=== PATIENT | male | born 1985 | race Hispanic/Latino ===

== ENCOUNTER 2017-04-01 21:32 | Inpatient (IN) | payer OTHER ==
[~2017-04-01] VITALS: Ht 172.7 cm; Wt 99.8 kg
[2017-04-01] MEDS ORDERED: SODIUM CHLORIDE 0.9% 1000ML 1,000 ML IV ONE (22:04)
[2017-04-01] MEDS ORDERED: ONDANSETRON ODT 4 MG TAB ONE (22:04)
[2017-04-01] MEDS ORDERED: ACETAMINOPHEN-CODEINE ELIXIR 5 ML UDCUP ONE (22:05)
[2017-04-01 22:07] LABS: BASOPHILS % (AUTO) 0.9 % (0.0-5.0); HEMATOCRIT 43.4 % (42-54); MEAN CORPUSCULAR HEMOGLOBIN 31.1 pg (27.0-33.0); MEAN CORPUSCULAR HGB CONC 35.8 g/dL (32.0-36.0); MEAN CORPUSCULAR VOLUME 86.9 fL (79-99); MONOCYTES % (AUTO) 7.9 % (3.0-13.0); NEUTROPHILS % (AUTO) 57.2 % (40.0-77.0); PLATELET COUNT (AUTO) 300 K/uL (130-400); RED BLOOD CELL COUNT(AUTO) 4.99 MIL/uL (4.50-6.20); RED CELL DISTRIBUTION WIDTH 12.3 % (11.0-15.5); WHITE BLOOD COUNT (AUTO) 8.7 K/uL (4.8-10.8)
[2017-04-01 22:12] LABS: CREATININE 1.2 mg/dL (0.5-1.5); POTASSIUM 3.6 mmol/L (3.5-5.1)
[2017-04-01 22:14] LABS: INR 0.94 (0.85-1.15); PARTIAL THROMBOPLASTIN TIME 24.6 SEC (26.3-35.5); PROTHROMBIN TIME 9.9 SEC (9.6-11.6)
[2017-04-01 22:25] LABS: ALBUMIN 4.1 g/dL (3.5-5.0); BILIRUBIN,TOTAL 0.3 mg/dL (0.2-1.0); TOTAL PROTEIN, SERUM 7.6 g/dL (6.0-8.3)
[2017-04-01] MEDS ORDERED: IOPAMIDOL-370 75 ML VIAL IV ONE (22:32)
[2017-04-01 23:18] LABS: APPEARANCE,URINE Clear (CLEAR); BILIRUBIN,URINE Negative (NEGATIVE); COLOR,URINE Yellow (YELLOW); GLUCOSE, URINE (UA) Negative (NEGATIVE); KETONES,URINE 15 mg/dL (NEGATIVE); LEUKOCYTE ESTERASE ,URINE Negative (NEGATIVE); NITRATE,URINE Negative (NEGATIVE); OCCULT BLOOD,URINE Negative (NEGATIVE); PH,URINE 6.5 (5.0-8.0); PROTEIN,URINE Negative (NEGATIVE)
[2017-04-01 23:24] LABS: AMPHET/METH SCREEN,URINE NEGATIVE (NEGATIVE); BARBITURATE SCREEN, URINE NEGATIVE (NEGATIVE); BENZODIAZEPINES SCREEN,URINE NEGATIVE (NEGATIVE); CANNABINOID SCREEN,URINE NEGATIVE (NEGATIVE); COCAINE SCREEN,URINE POSITIVE (NEGATIVE); OPIATE SCREEN,URINE POSITIVE (NEGATIVE); PHENCYCLIDINE SCREEN,URINE NEGATIVE (NEGATIVE)
[2017-04-01 23:29] LABS: RBC,URINE 0-1 /HPF (0-1)
[2017-04-01 23:30] LABS: BACTERIA,URINE Rare /HPF (None Seen); WBC,URINE 0-1 /HPF (0-1)
[2017-04-02] MEDS: SODIUM CHLORIDE 0.9% 1000ML 1,000 ML IV SCH ×3 (00:35→20:16)
[2017-04-02] MEDS ORDERED: ONDANSETRON HCL 4 MG/2 ML VIAL IV PRN (00:45)
[2017-04-02] MEDS ORDERED: POTASSIUM CHLORIDE 10% ELIXIR 20 MEQ/15 ML UDCUP PO PRN (00:45)
[2017-04-02] MEDS ORDERED: POTASSIUM CHLORIDE 20MEQ/100ML 100 ML IV PRN (00:45)
[2017-04-02] MEDS ORDERED: HYDROMORPHONE 1 MG/1 ML AMP IV PRN (00:45)
[2017-04-02] MEDS ORDERED: POTASSIUM CHLORIDE 20 MEQ ERTAB PO PRN (00:45)
[2017-04-02] MEDS ORDERED: LIDOCAINE HCL-MPF 1% 2ML VIAL IVP PRN (00:45)
[2017-04-02] MEDS: LEVOFLOXACIN 500 MG/D5W 100 ML 100 ML IV SCH (01:00)
[2017-04-02] MEDS ORDERED: LEVOFLOXACIN 500 MG/D5W 100 ML 100 ML ONE (01:07)
[2017-04-02] MEDS ORDERED: HYDROMORPHONE HCL 2 MG/ML VIAL ONE (01:08)
[2017-04-02] MEDS ORDERED: ACETAMINOPHEN 650 MG SUPPOSITORY RC PRN (01:15)
[2017-04-02 02:20] VITALS: BP 137/83
[2017-04-02 04:00] VITALS: BP 131/76
[2017-04-02 06:27] LABS: HEMATOCRIT 40.5 % (42-54); MEAN CORPUSCULAR HEMOGLOBIN 30.3 pg (27.0-33.0); MEAN CORPUSCULAR HGB CONC 34.8 g/dL (32.0-36.0); MEAN CORPUSCULAR VOLUME 87.3 fL (79-99); NUCLEATED RED BLOOD CELLS 0.1 % (0.0-0.19); PLATELET COUNT (AUTO) 263 K/uL (130-400); RED BLOOD CELL COUNT(AUTO) 4.64 MIL/uL (4.50-6.20); RED CELL DISTRIBUTION WIDTH 12.5 % (11.0-15.5); WHITE BLOOD COUNT (AUTO) 10.9 K/uL (4.8-10.8)
[2017-04-02 06:53] LABS: ALBUMIN 3.4 g/dL (3.5-5.0); BILIRUBIN,TOTAL 0.3 mg/dL (0.2-1.0); MAGNESIUM 1.9 mg/dL (1.80-2.40); POTASSIUM 3.9 mmol/L (3.5-5.1); TOTAL PROTEIN, SERUM 6.9 g/dL (6.0-8.3)
[2017-04-02 08:20] VITALS: BP 131/79
[2017-04-02] MEDS: PANTOPRAZOLE SODIUM 40 MG TABLET.DR PO SCH (08:52)
[2017-04-02] MEDS ORDERED: MORPHINE SULFATE 2 MG/ML 1ML SYG IVP PRN (10:45)
[2017-04-02 11:20] VITALS: BP 139/63
[2017-04-02 16:09] VITALS: BP 127/84
[2017-04-02 20:43] VITALS: BP 128/77
[2017-04-03 00:26] VITALS: BP 130/90
[2017-04-03] MEDS: LEVOFLOXACIN 500 MG/D5W 100 ML 100 ML IV SCH (01:07)
[2017-04-03 05:00] VITALS: BP 144/96
[2017-04-03] MEDS: SODIUM CHLORIDE 0.9% 1000ML 1,000 ML IV SCH (05:30)
[2017-04-03 08:07] VITALS: BP 140/70
[2017-04-03] MEDS: PANTOPRAZOLE SODIUM 40 MG TABLET.DR PO SCH (08:23)
[2017-04-03 11:52] VITALS: BP 132/72
[2017-04-03 16:19] VITALS: BP 151/86
== END 2017-04-03 16:53 | disposition home or self-care (01) | DRG 438 ==
LOC: EDH 21:32 → EDHIP 23:41 → 4AH 04-02 01:49
PROVIDERS: ADMIT Family Medicine; ATTEND Family Medicine
DX: K85.90 Acute pancreatitis without necrosis or infection, unspecified (principal); K65.9 Peritonitis, unspecified; K75.81 Nonalcoholic steatohepatitis (NASH); E78.1 Pure hyperglyceridemia; K86.1 Other chronic pancreatitis; E78.00 Pure hypercholesterolemia, unspecified; E78.5 Hyperlipidemia, unspecified; F19.10 Other psychoactive substance abuse, uncomplicated; J45.909 Unspecified asthma, uncomplicated; I10 Essential (primary) hypertension; E66.9 Obesity, unspecified; F17.200 Nicotine dependence, unspecified, uncomplicated; Z91.11 Patient's noncompliance with dietary regimen; Z83.3 Family history of diabetes mellitus; Z80.9 Family history of malignant neoplasm, unspecified; Z91.19 Patient's noncompliance with other medical treatment and regimen; Z68.33 Body mass index [BMI] 33.0-33.9, adult; Z28.21 Immunization not carried out because of patient refusal
CPT/HCPCS: 36415; 74177; 80053; 80061; 80305; 81001; 82150; 83690; 83735; 84443; 84484; 85025; 85027; 85610; 85730; 93005; C9113; J1170; J1956; J7030; Q9967

== ENCOUNTER 2017-04-14 09:09 | Emergency (ER) | payer OTHER | END 2017-04-14 10:30 | disposition home or self-care (01) | LOC: EDH 09:09 | DX: H66.92 Otitis media, unspecified, left ear (principal); J02.9 Acute pharyngitis, unspecified; J45.909 Unspecified asthma, uncomplicated; E78.5 Hyperlipidemia, unspecified; I10 Essential (primary) hypertension; Z72.0 Tobacco use | CPT/HCPCS: 87880 ==

== ENCOUNTER 2018-05-11 02:13 | Emergency (ER) | payer OTHER ==
[2018-05-11] MEDS ORDERED: PREDNISONE 20 MG TABLET ONE (02:36)
[2018-05-11] MEDS ORDERED: IPRATROPIUM/ALBUTEROL SULFATE 3 ML SOLUTION IH ONE ×2 (02:41→03:18)
[2018-05-11] MEDS ORDERED: LORAZEPAM 1 MG TABLET ONE (03:15)
[2018-05-11] MEDS ORDERED: CEFTRIAXONE SODIUM 1 GM ONE (03:31)
[2018-05-11] MEDS ORDERED: LIDOCAINE HCL-MPF 1% 2ML VIAL ONE (03:31)
== END 2018-05-11 04:44 | disposition home or self-care (01) ==
LOC: EDH 02:13
DX: J45.901 Unspecified asthma with (acute) exacerbation (principal); E78.5 Hyperlipidemia, unspecified; I10 Essential (primary) hypertension
CPT/HCPCS: 71045; 87804 ×2; 94640 ×2; 96372; 99284; J0696; J3490

== ENCOUNTER 2018-08-29 16:31 | Emergency (ER) | payer OTHER | END 2018-08-29 17:04 | disposition home or self-care (01) | LOC: EDH 16:31 | DX: G89.29 Other chronic pain (principal); M54.2 Cervicalgia; R07.0 Pain in throat; I10 Essential (primary) hypertension; E78.5 Hyperlipidemia, unspecified; J45.909 Unspecified asthma, uncomplicated | CPT/HCPCS: 99281 ==

== ENCOUNTER 2019-04-17 17:42 | Emergency (ER) | payer OTHER ==
[2019-04-17] MEDS ORDERED: PREDNISONE 20 MG TABLET ONE (17:55)
[2019-04-17] MEDS ORDERED: IPRATROPIUM/ALBUTEROL SULFATE 3 ML SOLUTION IH ONE (18:14)
== END 2019-04-17 19:24 | disposition home or self-care (01) ==
LOC: EDH 17:42
DX: J45.901 Unspecified asthma with (acute) exacerbation (principal); E78.5 Hyperlipidemia, unspecified; I10 Essential (primary) hypertension; Z72.0 Tobacco use
CPT/HCPCS: 93005; 94640

== ENCOUNTER 2019-04-19 03:09 | Emergency (ER) | payer OTHER | END 2019-04-19 03:45 | disposition left against medical advice (07) | LOC: EDH 03:09 | DX: J45.909 Unspecified asthma, uncomplicated (principal); R05 Cough; Z53.21 Procedure and treatment not carried out due to patient leaving prior to being seen by health care provider ==

== ENCOUNTER 2020-06-24 06:27 | Emergency (ER) | payer OTHER ==
[~2020-06-24 06:27] MED LIST: LISI40TA9 PO
[2020-06-24] MEDS ORDERED: LIDOCAINE HCL 2% VISCOUS 15 ML UDCUP ONE (06:49)
[2020-06-24] MEDS ORDERED: MAG HYDROX/AL HYDROX/SIMETH ES 30 ML SUSP UDCUP ONE (06:49)
[2020-06-24] MEDS ORDERED: PANTOPRAZOLE 40 MG/VIAL ONE (06:50)
[2020-06-24 06:51] LABS: BASOPHILS % (AUTO) 0.8 % (0.0-5.0); EOSINOPHILS % (AUTO) 2.2 % (0.0-8.0); HEMATOCRIT 39.4 % (42-54); LYMPHOCYTES % (AUTO) 31.2 % (21.0-51.0); MEAN CORPUSCULAR HEMOGLOBIN 30.5 pg (27.0-33.0); MEAN CORPUSCULAR HGB CONC 35.3 g/dL (32.0-36.0); MEAN CORPUSCULAR VOLUME 86.6 fL (79-99); MONOCYTES % (AUTO) 10.3 % (3.0-13.0); NEUTROPHILS % (AUTO) 55.2 % (40.0-77.0); PLATELET COUNT (AUTO) 329 K/uL (130-400); RED BLOOD CELL COUNT(AUTO) 4.55 MIL/uL (4.50-6.20); RED CELL DISTRIBUTION WIDTH 11.8 % (11.0-15.5); WHITE BLOOD COUNT (AUTO) 10.5 K/uL (4.8-10.8)
[2020-06-24 06:57] LABS: INR 1.1 (0.85-1.15); PROTHROMBIN TIME 11.9 SEC (9.6-11.6)
[2020-06-24 06:59] LABS: PARTIAL THROMBOPLASTIN TIME 26.4 SEC (26.3-35.5)
[2020-06-24 07:04] LABS: ALBUMIN 4.2 g/dL (3.5-5.0); BILIRUBIN,TOTAL 0.6 mg/dL (0.2-1.0); CREATININE 1.3 mg/dL (0.5-1.5); CRP QUANTITATIVE 8.7 mg/L (0.00-9.0); MAGNESIUM 1.9 mg/dL (1.80-2.40); POTASSIUM 3.8 mmol/L (3.5-5.1); TOTAL PROTEIN, SERUM 7.4 g/dL (6.0-8.3)
[2020-06-24 07:20] LABS: B-TYPE NATRIURETIC PEPTIDE < 5 pg/mL (0-100)
== END 2020-06-24 10:52 | disposition home or self-care (01) ==
LOC: EDH 06:27
DX: F41.1 Generalized anxiety disorder (principal); R07.89 Other chest pain; F14.10 Cocaine abuse, uncomplicated; F10.10 Alcohol abuse, uncomplicated; R20.2 Paresthesia of skin; E78.5 Hyperlipidemia, unspecified; I10 Essential (primary) hypertension; J45.909 Unspecified asthma, uncomplicated; Z72.0 Tobacco use; Z79.899 Other long term (current) drug therapy
CPT/HCPCS: 36415; 80053; 82550; 83690; 83735; 83880; 84484 ×2; 85025; 85610; 85730; 86140; 93005 ×2; 96374; 99284; C9113

== ENCOUNTER 2021-03-01 01:08 | Emergency (ER) | payer OTHER ==
[~2021-03-01] VITALS: Ht 172.7 cm; Wt 107.0 kg
[2021-03-01 01:10] VITALS: BP 133/78
== END 2021-03-01 03:37 | disposition left against medical advice (07) ==
LOC: EDH 01:08
DX: R42 Dizziness and giddiness (principal); Z53.21 Procedure and treatment not carried out due to patient leaving prior to being seen by health care provider

== ENCOUNTER 2024-05-24 05:19 | Emergency (ER) | payer OTHER ==
[~2024-05-24] VITALS: Ht 172.7 cm; Wt 108.9 kg
--- NOTE | 2024-05-24 05:26 | NUR ---
FATHER LOIDA ./EDWARD
[2024-05-24 05:37] LABS: BASOPHILS # (AUTO) 0.08 K/uL (0.00-0.20); BASOPHILS % (AUTO) 0.9 % (0.0-5.0); EOSINOPHILS # (AUTO) 0.29 K/uL (0.00-0.70); EOSINOPHILS % (AUTO) 3.1 % (0.0-8.0); HEMATOCRIT 40.5 % (42-54); IMMATURE GRANULOCYTE ABSOLUTE 0.03 K/uL (0-1); LYMPHOCYTES # (AUTO) 2.2 K/uL (1.0-4.8); LYMPHOCYTES % (AUTO) 23.6 % (21.0-51.0); MEAN CORPUSCULAR HEMOGLOBIN 32.3 pg (27.0-33.0); MEAN CORPUSCULAR HGB CONC 35.1 g/dL (32.0-36.0); MEAN CORPUSCULAR VOLUME 92.3 fL (79-99); MONOCYTES % (AUTO) 10.2 % (3.0-13.0); NEUTROPHILS # (AUTO) 5.8 K/uL (1.8-7.7); NEUTROPHILS % (AUTO) 61.9 % (40.0-77.0); PLATELET COUNT (AUTO) 401 K/uL (130-400); RED BLOOD CELL COUNT(AUTO) 4.39 MIL/uL (4.50-6.20); RED CELL DISTRIBUTION WIDTH 11.2 % (11.0-15.5); WHITE BLOOD COUNT (AUTO) 9.4 K/uL (4.8-10.8)
[2024-05-24 06:01] LABS: ALBUMIN 4.3 g/dL (3.5-5.0); BILIRUBIN,TOTAL 0.2 mg/dL (0.2-1.0); CREATININE 1.1 mg/dL (0.5-1.3); POTASSIUM 3.3 mmol/L (3.5-5.1); TOTAL PROTEIN, SERUM 8.2 g/dL (6.0-8.3)
[2024-05-24] MEDS: ondanSETRON 4MG INJ IVP ONE (06:02)
[2024-05-24] MEDS: FENTanyl CITRate PF 50 MCG/1 ML 2ML VIAL IVP ONE (06:02)
--- NOTE | 2024-05-24 06:03 | ERN ---
General Chief Complaint: Hematemesis/Vomiting Blood Stated Complaint: NOSE BLEED Time Seen by MD: 05:41 Source: patient History of Present Illness Initial Comments Patient coming in with a nosebleed and hematemesis. He said he was seen at [facility] couple days ago or they said his nose was reacting to allergies and it was very irritated. They sent him home after controlling the bleeding. He comes back today with profuse bright red blood coming out of his nose and into his throat. He is coughing up blood. We quickly inserted a rhino rocket, which only helped stem the tide of bleeding a bit. Allergies: Coded Allergies: No Known Drug Allergies (Verified Allergy, 03/10/13) Home Meds Reported Medications Lisinopril (Lisinopril) 40 Mg Tablet, 40 MG PO DAILY for BP, TAB 01/03/20 Past Medical History Past Medical History: Asthma, Hypertension Past Surgical History: None Constitutional: (-) chills, (-) diaphoresis, (-) fever, (-) malaise, (-) weakness, (-) other documentation EENTM: (+) nose pain Respiratory: (+) cough, (+) orthopnea, (+) short of breath, (+) stridor, (+) wheezing, (+) other documentation Cardiovascular: (+) chest pain, (+) edema Gastrointestinal/Abdominal: (-) nausea, (-) vomiting, (-) diarrhea, (-) abdominal pain, (-) abdominal distention, (-) constipation, (-) rectal bleeding, (-) dark stool/melena, (-) other documentation Musculoskeletal: (-) Neck pain, (-) back pain, (-) Flank Pain, (-) joint pain, (-) joint swelling, (-) muscle pain, (-) muscle stiffness, (-) gout, (-) other documentation Skin: (-) laceration, (-) contusion, (-) abrasion, (-) abscess, (-) rash, (-) change in color, (-) change in hair, (-) change in nails, (-) diaphoresis, (-) dryness, (-) other documentation Physical Exam General Appearance: (+) moderate distress Orientation: (+) oriented x 3 Head/Face Trauma: No Eye: bilateral eye normal inspection, bilateral eye PERRL, bilateral eye EOMI Ear, Nose, Throat Comment Bright red blood pouring out of his right nares, the nasal rhino rocket has decreased the amount of bleeding. Respiratory: (+) chest non-tender, (+) lungs clear Results Laboratory and Microbiology Lab and Micro Result Laboratory Tests Test 05/24/24 05:30 White Blood Count 9.4 K/uL (4.8-10.8) Red Blood Count 4.39 MIL/uL (4.50-6.20) L Hemoglobin 14.2 g/dL (14.0-18.0) Hematocrit 40.5 % (42-54) L Mean Corpuscular Volume 92.3 fL (79-99) Mean Corpuscular Hemoglobin 32.3 pg (27.0-33.0) Mean Corpuscular Hemoglobin Concent 35.1 g/dL (32.0-36.0) Red Cell Distribution Width 11.2 % (11.0-15.5) Platelet Count 401 K/uL (130-400) H Mean Platelet Volume 9.3 fL (7.5-10.5) Immature Granulocyte % (Auto) 0.3 % (0-1) Neutrophils (%) (Auto) 61.9 % (40.0-77.0) Lymphocytes (%) (Auto) 23.6 % (21.0-51.0) Monocytes (%) (Auto) 10.2 % (3.0-13.0) Eosinophils (%) (Auto) 3.1 % (0.0-8.0) Basophils (%) (Auto) 0.9 % (0.0-5.0) Neutrophils # (Auto) 5.8 K/uL (1.8-7.7) Lymphocytes # (Auto) 2.2 K/uL (1.0-4.8) Monocytes # (Auto) 1.0 K/uL (0.1-1.0) Eosinophils # (Auto) 0.29 K/uL (0.00-0.70) Basophils # (Auto) 0.08 K/uL (0.00-0.20) Absolute Immature Granulocyte (auto 0.03 K/uL (0-1) Nucleated Red Blood Cells 0.0 % (0.0-0.19) Sodium Level 135 mmol/L (136-145) L Potassium Level 3.3 mmol/L (3.5-5.1) L Chloride Level 100 mmol/L (101-111) L Carbon Dioxide Level 20 mmol/L (21-32) L Blood Urea Nitrogen 13 mg/dL (7-18) Creatinine 1.1 mg/dL (0.5-1.3) Glomerular Filtration Rate Calc 87 mL/min (>90) Random Glucose 100 mg/dL (70-105) Total Calcium 9.1 mg/dL (8.5-10.1) Total Bilirubin 0.2 mg/dL (0.2-1.0) Aspartate Amino Transf (AST/SGOT) 24 U/L (10-37) Alanine Aminotransferase (ALT/SGPT) 38 U/L (12-78) Alkaline Phosphatase 50 U/L (50-136) Total Protein 8.2 g/dL (6.0-8.3) Albumin 4.3 g/dL (3.5-5.0) MDM We ordered a CBC which showed hemoglobin of 15. I exchanged the rhino rocket for another one that was soaked with lidocaine and also tranexamic acid and that seems to be working better. Certainly the lidocaine is controlling his pain. The fentanyl did not control his pain in the Dilaudid 1 mg seemed to make him sleepy. Currently are watching him to see if we are able to control the bleeding. Rhino rocket was placed. Patient was monitored for about 4 hours, the bleeding had stopped. Since it was pretty significant initially and that is had multiple episodes, I did offer to transfer the patient for an ENT evaluation. During the transfer process we did get word from [facility] that they may be able to accept the patient. When I up-to-date with the patient about this, he says that he does not want to be transferred anymore. He reports that he feels much be tter. The bleeding is minimal. We will DC. ED Course Orders Procedure Category Date Status Time Cbc With Differential LAB 05/24/24 Complete 05:30 Comprehensive LAB 05/24/24 Complete Metabolic Panel 05:30 Type And Screen BBK 05/24/24 Complete 05:30 Tranexamic Acid PHA 05/24/24 Complete (Cyklokapron) 05:46 Fentanyl Citrate Pf PHA 05/24/24 Complete 0.05 Mg/Ml (Fentanyl 06:00 Ondansetron 4mg Inj PHA 05/24/24 Complete (Zofran 4mg Inj) 06:00 Lidocaine 1%-Epi PHA 05/24/24 Complete 1:100,000 (Lidocaine 06:30 Hydromorphone 2mg PHA 05/24/24 Complete Vial (Dilaudid 2mg Inj 06:30 Hydromorphone 1 Mg PHA 05/24/24 Complete Inj (Dilaudid 1mg Inj 06:30 *Nursing CPOE 05/24/24 Transmitted Communication: 06:21 Current Medications Medications (Trade) Dose Ordered Sig/Yoandy Route PRN Reason Start Time Stop Time Status Last Admin Dose Admin Fentanyl Citrate (FENTanyl CITRate PF 50 MCG/ 1 ML 2ML VIAL) 100 mcg ONCE ONCE IVP 05/24/24 06:00 05/24/24 06:01 DC 05/24/24 06:02 Hydromorphone HCl (DiLAUDid 1MG INJ) 1 mg ONCE ONCE IVP 05/24/24 06:30 05/24/24 06:31 DC 05/24/24 06:25 Hydromorphone HCl (DiLAUDid 2MG INJ) 2 mg ONCE ONCE IVP 05/24/24 06:30 05/24/24 06:20 DC Lidocaine/ Epinephrine (Lidocaine 1%-Epi 1:100,000) 20 ml ONCE IJ 05/24/24 06:30 05/24/24 06:09 DC Ondansetron HCl (zoFRAN 4MG INJ) 4 mg ONCE ONCE IVP 05/24/24 06:00 05/24/24 06:01 DC 05/24/24 06:02 Tranexamic Acid (Cyklokapron) 1,000 mg ONCE STAT TP 05/24/24 05:46 05/24/24 05:57 DC Vital Signs Date Time Temp Pulse Resp B/P (MAP) Pulse Ox O2 Delivery O2 Flow Rate FiO2 05/24/24 08:00 99.1 78 17 144/79 99 Room Air* 0 05/24/24 06:38 106 20 155/95 98 Room Air* 0 21 05/24/24 05:31 115 19 140/75 96 Room Air* 0 21 05/24/24 05:21 98.4 125 23 172/110 97 Room Air DX & DISP Disposition: Discharge Departure Impression: Primary Impression: Epistaxis Condition: Stable Additional Instructions: As we discussed, leave the rhino rocket in your nose for at least 24 hours. You can remove it on your own or return to the emergency department for removal. You likely need to follow up with an ENT specialist. Go to your primary provider for referral. Your blood work (CBC, BMP) is unremarkable. Please return to the emergency department if you have any concerns. Referrals: KATHERINE WYLIE (PCP) ESTEAVN VIZCAINO MD May 24, 2024 06:03 TONY ZAPATA DO May 24, 2024 11:24
[2024-05-24] MEDS: TRANEXAMIC ACID 1000MG/10ML TP STA (06:18)
--- NOTE | 2024-05-24 06:19 | NUR ---
TRANEXAMIC ACID ADMINISTERED BY DR VIZCAINO
[2024-05-24] MEDS: hydroMORPHone 1 MG INJ IVP ONE (06:25)
[2024-05-24] MEDS ORDERED: LIDOCAINE 1%-EPI 1:100,000 20 ML VIAL IJ SCH (06:30)
[2024-05-24] MEDS ORDERED: hydroMORPHone 2 MG VIAL (2MG/ML) IVP ONE (06:30)
--- NOTE | 2024-05-24 07:00 | NUR ---
ASSUMED PATIENTS CARE.
--- NOTE | 2024-05-24 07:20 | NUR ---
TRANSFER REQUEST FOR ENT SERVICE BY DR JODI ORTIZ RN
[2024-05-24 08:00] VITALS: BP 144/79; PULSE 78; RESP 17; TEMP 99.1; O2SAT 99
--- NOTE | 2024-05-24 08:27 | NUR ---
[place] [facility] [place] [phone] SPOKE WITH BENEDICT INTAKE NURSE INFORMATION PROVIDED AND WILL CALL BACK. ANGEL [place]
--- NOTE | 2024-05-24 09:05 | NUR ---
TRANSFER CENTER CALL BACK PER BENEDICT PT WILL BE DECLINED FOR NO SERVICE NO ENT FLIGHT NURSE. ER MADE AWARE. ANGEL [place]
--- NOTE | 2024-05-24 09:54 | NUR ---
TRANSFER CALL PLACE TO DR LAGUERRE OFFICE [phone] TO TRY TO SCHEDULE ON APPOINTMENT TODAY PER [employer] OFFICER SYSTEM IS DOWN AND UNABLE TO SCHEDULE ANY APPOINTMENTS AT THIS TIME. ER MADE AWARE. ANGEL [place]
--- NOTE | 2024-05-24 09:59 | NUR ---
TRANSFER CALL PLACE TO [facility]ER [facility] NO ENT SERVICE, [facility] ONLY FOR TRAUMA PTS . ER MADE AWARE. ANGEL [place]
--- NOTE | 2024-05-24 10:29 | NUR ---
TRANSFER DHR OTIS SPOKE WITH RUDOLPH INTAKE NURSE INFORMATION PROVIDED AND WILL CALL BACK. ER MADE AWARE, ANGEL [place]
--- NOTE | 2024-05-24 10:55 | NUR ---
TRANSFER INTAKE NURSE RUDOLPH FOR DHR CALL BACK STATES PENDING CALL FROM ENT PROVIDER AND IF SO PT WILL BE ACCEPTED TO [facility] [place]. ER DOCTOR MADE AWARE. STILL PENDING ACCEPTANCE. ANGEL [place]
--- NOTE | 2024-05-24 11:23 | NUR ---
PHONE CALL RECEIVED FROM ER DOCTOR PT DID NOT WHAT TO BE TRANSFER AND LEFT. ANGEL [place]
--- NOTE | 2024-05-24 11:24 | NUR ---
TRANSFER CALL PLACE TO INTAKE NURSE RUDOLPH IN DHR TO INFORM PT DID NOT WHAT TO BE TRANSFER AND LEFT TRANSFER WITHDRAWN VERBALIZED UNDERSTANDING. ANGEL [place]
--- NOTE | 2024-05-24 11:26 | NUR ---
DISCUSSED PLAN OF CARE, HOME MEDICATIONS
== END 2024-05-24 11:00 | disposition home or self-care (01) ==
LOC: EDH 05:19
DX: R04.0 Epistaxis (principal); I10 Essential (primary) hypertension; J45.909 Unspecified asthma, uncomplicated; Z79.899 Other long term (current) drug therapy
CPT/HCPCS: 99284; 96374; 96375; 80053; 85025; 86850; 86900; 86901; 36415; J1171; J3010; J3490 ×2; J2405